=== PATIENT | male | born 1970 | race Caucasian/White ===

== ENCOUNTER 2021-07-15 10:55 | Day surgery (SDC) | payer BC ==
[~2021-07-15 10:55] MED LIST: Acetaminophen 1,000 MG in Premix Bag 1 BAG IV SCH; Albuterol 0.083% 2.5 MG/3 ML Neb Soln NEB PRN; HYDROmorphone 1 MG/ML Syringe IVPUSH PRN; Lactated Ringers 1,000 ML IV SCH; Metoclopramide 10 MG/2 ML SDV IVPUSH PRN; Morphine 4 MG/ML VIAL IVPUSH PRN; Naloxone 0.4 MG/ML SDV IVPUSH PRN; Ondansetron 4 MG/2 ML SDV IVPUSH PRN; Pregabalin 75 MG Cap PO SCH; ceFAZolin 2 GM in Premix Bag 1 BAG IV SCH; fentaNYL 100 MCG/2 ML SDV IVPUSH PRN
[2021-07-15] MEDS ORDERED: Ropivacaine 0.5% 5 MG/ML 30 ML SDV ONE (12:02)
[2021-07-15] MEDS ORDERED: Propofol 200 MG/20 ML SDV ONE (13:03)
[2021-07-15] MEDS ORDERED: fentaNYL 250 MCG/5 ML SDV ONE (13:30)
[2021-07-15] MEDS ORDERED: Octyl 2-Cyanoacrylate 1 Tube ONE (13:35)
[2021-07-15] MEDS ORDERED: Bupivacaine 0.5% 30 ML SDV ONE (13:35)
[2021-07-15] MEDS ORDERED: Lidocaine 2% 5 ML SDV ONE (13:40)
[2021-07-15] MEDS ORDERED: Sugammadex Sodium 200 MG/2 ML VIAL ONE (13:41)
[2021-07-15] MEDS ORDERED: Dexamethasone 4 MG/ML 5 ML MDV ONE (13:41)
[2021-07-15] MEDS ORDERED: Rocuronium Bromide 50 MG/5 ML Syringe ONE (13:41)
[2021-07-15] MEDS ORDERED: Ondansetron 4 MG/2 ML SDV ONE (13:41)
[2021-07-15] MEDS ORDERED: Ketorolac 30 MG/ML SDV ONE (14:43)
== END 2021-07-15 16:15 | disposition home or self-care (01) ==
LOC: MW.SDS 10:55
PROVIDERS: ATTEND Surgery
DX: K42.9 Umbilical hernia without obstruction or gangrene (principal); I10 Essential (primary) hypertension; F17.210 Nicotine dependence, cigarettes, uncomplicated; Z98.890 Other specified postprocedural states; Z79.899 Other long term (current) drug therapy
CPT/HCPCS: 49585; A9270; C1781; J0131; J0690; J1100; J1885; J2370; J2405; J2704; J2795; J3010; J3490; J7120